=== PATIENT | female | born 1980 | race Caucasian/White ===

== ENCOUNTER 2022-02-24 15:00 | Inpatient (IN) ==
[2022-02-24] MEDS ORDERED: LACTATED RINGER'S 1,000 ML IV PRN (15:45)
[2022-02-24] MEDS ORDERED: LIDOCAINE 1% LOCAL 20 ML VIAL INFIL PRN (15:45)
[2022-02-24] MEDS ORDERED: OXYTOCIN 30 UNITS/500 ML BAG IV PRN ×2 (15:45→17:04)
--- NOTE | 2022-02-24 15:57 | History & Physical Report ---
Date of Service February 24, 2022 Assessment & Plan (1) Supervision of elderly multigravida: Plan: 41 y/o presents in labor, ?LOF VSS, elevated but in pain Fetus cat 1 Labor - cannot confirm rom currently but story sounds convincing and pt now laboring. Will admit and manage expectantly Hx HSV - no obvious lesions noted, pt denies prodromal symptoms, on valtrex GBS neg desires epidural History of Present Illness Chief Complaint: LOF Primary Care Provider: NO PCP 41 y/o at 39 4/7 wga presents w/ c/o LOF. Had a large gush around 220 and then contractions came on strong shortly after. Was leaking following, denies VB. +FM. Notes intercourse last evening PNI: Uterine synechiae Hx HSV, on valtrex AMA conceived on letrozole Past MEDICAL SURGERY NURSE Hx: G1 2017 at 38 wks G2 2020 SAB G3 current hx irreg periods 01/2020 neg cotest Hx HSV, only ever had 1 outbreak Allergies Allergy/AdvReac Type Severity Reaction Status Date / Time No Known Allergies Allergy Verified 02/23/22 11:25 Home Medications Medication Instructions Recorded Confirmed Type prenat.vits,son,isg-imhv-ksnws 1 tab PO DAILY 07/13/21 02/24/22 History valacyclovir 500 mg tablet 1,000 mg PO DAILY #90 tabs 02/02/22 02/24/22 Rx (Valtrex) Patient History Medical History 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 Missed PCOS (polycystic ovarian syndrome) Surgical History Hx of wisdom tooth extraction S/P D&C (status post dilation and curettage) Status post colposcopy Family History Father Prediabetes Hypertension Mother Hypothyroid Other Diabetes Denies family history of Ovarian cancer Prostate cancer Breast cancer Lung cancer Cancer Social History (Updated 02/24/22 @ 15:12 by Shea Aguiar) Smoking Status: Never smoker Second Hand Exposure: No; Hx Alcohol Use: No Hx Substance Use: No Preferred Language: Belarusian Communication Ability: Effective Chemistry Professor Required: No Beliefs That Will Affect Care: None marital status: marital status details: Evelio Ren (36) [phone] Current Living Situation: Spouse and Family Current Living Situation Comment: FOB and son - 2 cats - FOB changes cat litter current occupational status: employed 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 Ferning not obviously seen. No obvious HSV lesions Results & Data ([facility]) Vital Signs (Past 12 Hours) Vital Signs Temp Pulse Resp BP 02/24/22 15:09 98.1 F 86 20 140/87 Laboratory Results OB Labs: Blood Type A Positive 07/23/21 Antibody Screen NEGATIVE 07/23/21 Hemoglobin 10.9 g/dL (12.0-16.0) L 12/10/21 HematocritD 35.1 % (37-47) L 12/10/21 Mean Corpuscular Volume 89.8 fL (80-100) 07/23/21 Platelet Count 406 K/uL (130-400) H 07/23/21 Rubella IgG Antibody Immune (Immune) 07/23/21 Rapid Plasma Reagin Nonreactive (Nonreactive) 07/23/21 Hepatitis B Surface Antigen Neg (Neg) 07/23/21 Hepatitis C Antibody Neg (Neg) 07/23/21 HIV (1&2) Ab and P24 Ag, 4th Gener Neg (Neg) 07/23/21 Glucose 1 Hour 50 gm Load 129 mg/dl (70-130) 12/10/21 Maternal Serum Alpha Fetoprotein 47.3 ng/mL 09/17/21 OB Optional Labs: Chlamydia trachomatis RNA NOT DETECTED (NOT DETECTED) 07/23/21 Neisseria gonorrhoeae RNA NOT DETECTED (NOT DETECTED) 07/23/21 Alpha Fetoprotein Triple Screen SEE NOTE 09/17/21 Labs Reviewed: csf/sma-negative--mln cfdna-low risk--mln neg afp - sln GBS neg Diagnostic Findings 02/02 EFW 32%, fundal plac Coding Level of Care Code None Diagnoses Supervision of elderly multigravida O09.529
[2022-02-24 16:25] LABS: Hematocrit (blood only) 36.2 % (34.1-44.9); Hemoglobin 11.5 g/dl (12.0-16.0); Mean Corpuscular Hemoglobin 26.9 pg (25.0-34.0); Mean Corpuscular Hgb Conc 31.8 g/dL (32.0-36.0); Mean Corpuscular Volume 84.6 fL (80.0-100.0); Mean Platelet Volume 10.8 fL (9.4-12.3); Platelet Count 234 K/uL (130-400); RDW Coefficient of Variation 15.3 % (11.5-14.5); RDW Standard Deviation 46.6 fL (36.4-46.3); Red Blood Count 4.28 M/uL (3.93-5.22); White Blood Count 8.82 K/ul (4.8-10.8)
[2022-02-24] MEDS ORDERED: BENZOCAINE 20% AER SPR 82.5 GM CAN EXT PRN (17:04)
[2022-02-24] MEDS ORDERED: ACETAMINOPHEN 325 MG TAB PO PRN (17:04)
[2022-02-24] MEDS ORDERED: bisacodyL 10 MG SUPP PR PRN (17:04)
[2022-02-24] MEDS ORDERED: HYDROCORTISONE ACETATE 25 MG SUPP PR PRN (17:04)
[2022-02-24] MEDS ORDERED: DIPHTHERIA/TETANUS/PERTUSSIS 0.5 ML SYR/VIAL IM ONE (17:04)
--- NOTE | 2022-02-24 17:08 | Delivery Summary ---
Vaginal Delivery Summary Date of Service February 24, 2022 Vaginal Delivery Summary and 2nd Degree LAC PREOPERATIVE DIAGNOSIS: 1. Single intrauterine at 39 4/7 wga 2. SROM 3. Labor POSTOPERATIVE DIAGNOSIS: 1. Single intrauterine at 39 4/7 wga 2. SROM 3. Labor 4. Delivered PROCEDURE: 1. Normal spontaneous vaginal delivery. SURGEON: Sri Turner MD ANESTHESIA: Local ESTIMATED BLOOD LOSS: 300 mL FLUIDS: Continuous LR. URINE OUTPUT: None. COMPLICATIONS: None. CONDITION: Stable. INDICATIONS: 41 y/o at 39 4/7 wga presented with suspected SROM and found to be 2-3cm. She rapidly progressed to 10cm in 1 hr and desired to push. FINDINGS: A viable female , weight pending with Apgars of 8 and 9 at 1 and 5 minutes respectively. SPECIMEN: Cord blood, placenta OPERATIVE REPORT: The patient progressed to 10 cm, 100% effaced and +2 station, pushed over intact perineum with anesthesia to deliver a viable female infant, weight and Apgars as above. Head of delivered in AIDAN position. No nuchal cord was present. Body and shoulders were delivered without difficulty. was delivered to maternal abdomen and nursing staff. Delayed cord clamping was performed for 60 seconds. Cord was clamped and cut. Cord blood was obtained. Placenta delivered spontaneously intact with 3-vessel cord. IV oxytocin and fundal massage were given for excellent hemostasis. Vagina, cervix, perineum, and placenta were inspected. A second degree laceration was noted and repaired using 3-0 vicryl after local anesthesia was administered. There was excellent hemostasis. Sponge and needle counts correct x2. No sponges were left behind. Mother and stable in immediate period[place] [facility] [place] Vaginal Delivery Codes: 45872 global code for the antepartum, delivery, and post- Delivery Type Details: and 2nd Degree LAC
[2022-02-24] MEDS: IBUPROFEN 600 MG TAB PO PRN (17:22)
[2022-02-24] MEDS: DOCUSATE SODIUM 100 MG CAP PO SCH (20:56)
--- NOTE | 2022-02-25 07:32 | Obstetrical Progress Note ---
Date of Service February 25, 2022 Assessment & Plan (1) Vaginal delivery: Plan Routine day 1. Doing overall well. Considering d/c later this evening. Instructions reviewed. Day #:: 1 Subjective Ambulation: ambulating normally Voiding: no voiding problems Passing Gas:: Yes Diet Tolerance:: regular diet Lochia:: Small Feeding Type:: breast feeding Feels well this am. STruggling a little with breast feeding. Physical Exam Constitutional WD/WN, vitals as above Cardiovascular Extremities: + edema (tr); no calf tenderness Gastrointestinal (Abdomen) soft, nt, nd ff/nt at u Results & Data ([facility]) Vital Signs (Past 12 Hours) Vital Signs Temp Pulse Resp BP O2 Del Method 02/25/22 04:00 36.7 C 83 18 100/64 02/25/22 00:01 36.7 C 65 18 106/70 02/24/22 19:45 37.0 C 76 18 107/71 Room Air
[2022-02-25] MEDS ORDERED: FERROUS SULFATE 325 MG TAB PO SCH (08:00)
[2022-02-25] MEDS ORDERED: PRENATAL VITAMIN 1 TAB PO SCH (08:00)
[2022-02-25] MEDS: DOCUSATE SODIUM 100 MG CAP PO SCH (08:55)
[2022-02-25] MEDS: IBUPROFEN 600 MG TAB PO PRN (09:05)
[2022-02-25] MEDS ORDERED: bisacodyL 5 MG TABEC PO SCH (20:00)
== END 2022-02-25 18:38 | disposition home or self-care (01) | DRG 807 ==
LOC: OPB 15:00 → 4S1 15:01 → 4E2 18:36